=== PATIENT | male | born 1960 | race African-American/Black ===

== ENCOUNTER 2018-12-28 11:00 | Inpatient (IN) | payer OTHER ==
[~2018-12-28] VITALS: Ht 177.8 cm; Wt 111.6 kg
[~2018-12-28 11:00] MED LIST: BACTRIM DS TAB1 EACH; KEFLEX500 MG PO; LORTAB 7.5/5001 TA1 PO
[2018-12-28 11:05] VITALS: BP 169/102
[2018-12-28] MEDS ORDERED: FLEXERIL PO (11:09)
[2018-12-28] MEDS ORDERED: KEPPRA250 MG PO (11:09)
[2018-12-28 11:59] LABS: ABSOLUTE BASOPHILS 0.1 thou/uL (0.0-0.2); ABSOLUTE EOSINOPHILS 0.1 thou/uL (0.0-0.7); ABSOLUTE LYMPHOCYTES 1.2 thou/uL (0.8-5.3); ABSOLUTE MONOCYTES 0.7 thou/uL (0.0-1.2); ABSOLUTE NEUTROPHILS 5.2 thou/uL (1.6-8.1); BASOPHILS 0.9 %; EOSINOPHILS 1.1 %; HEMATOCRIT 58.7 % (42.0-52.0); HEMOGLOBIN 19.5 gm/dL (14.0-18.0); LYMPHOCYTES 17.1 %; MCH 31.4 pg (26.0-34.0); MCHC 33.3 g/dL (28.0-37.0); MCV 94.3 fL (80.0-100.0); MONOCYTES 9.4 %; MPV 9.4 fl. (7.2-11.1); NUCLEATED RBCS 0 /100WBC; PLATELET COUNT* 294 thou/uL (150-400); POLYS 71.5 %; RBC 6.22 mil/uL (4.50-6.00); WBC 7.3 thou/uL (4.0-11.0)
[2018-12-28 12:03] LABS: ANION GAP 10 mmol/L (7-16); BUN 14 mg/dL (7-18); CALCIUM 9.4 mg/dL (8.5-10.1); CHLORIDE 102 mmol/L (98-107); CO2 26 mmol/L (21-32); CREATININE 1.9 mg/dL (0.6-1.3); GLUCOSE 86 mg/dL (70-99); POTASSIUM 4.8 mmol/L (3.5-5.1); SODIUM 138 mmol/L (136-145)
[2018-12-28 12:16] LABS: ALKALINE PHOSPHATASE 37 U/L (46-116); NT-PRO BRAIN NAT PEPTIDE 65 pg/mL (<300); SGOT 138 U/L (15-37); SGPT 119 U/L (30-65); TOTAL BILIRUBIN 1.3 mg/dL (<0.1-1.0); TOTAL PROTEIN 7.4 g/dL (6.4-8.2)
[2018-12-28 12:34] LABS: TROPONIN-I LEVEL <0.06 ng/mL (<0.06)
--- NOTE | 2018-12-28 12:48 | NUR ---
JAM NOTIFIED UPON PT RETURN FROM CT. PT CONNECTED TO MONITOR
--- NOTE | 2018-12-28 15:22 | NUR ---
REPORT CALLED TO MICHELE ON
[2018-12-28 15:45] VITALS: BP 148/97
[2018-12-28 16:00] VITALS: BP 135/79
--- NOTE | 2018-12-28 17:23 | EKG ---
[place] [address] ELECTROCARDIOGRAM REPORT Name: MIHAI GAMEZ Room: [address] ADM IN ..#: [id number] Admission: 12/28/18 Attend Phys: Jay Nunes MD Discharge: Date of : 60 Report #: [id number] THIS REPORT FOR: //name// [facility] ED Test Date: 2018-12-28 Test Time: 11:14:06 Pat Name: MIHAI GAMEZ Department: Room: [facility] Gender: M [employer]ist: [place] : 1960 Requested By: Duy Villaseñor Order Number: [id number] MD: Mihai Webster Measurements Intervals [place] Rate: 101 P: 41 VA: 145 QRS: 26 QRSD: 100 T: 4 QT: 352 QTc: 457 Interpretive Statements Sinus tachycardia Anteroseptal infarct age indeterminate, possible Compared to ECG 07/06/2012 01:12:55 No significant changes noted. Electronically Signed On 12-28-2018 17:23:34 CDT by Mihai Webster [email or web address] <ELECTRONICALLY SIGNED> By: Mihai Webster MD, FACC 12/28/18 1723 1114 [id number] Mihai Webster MD, [facility] /EPI
--- NOTE | 2018-12-28 19:50 | NUR ---
ASSUSSMED CARE OF PT APPROX 1545, REPORT RECIEVED FROM ED NURSE. PT WAS VERY UNSTEADY ON HIS FEET UP WITH STAND BY ASSISSTANCE. PT WAS EXPERIENCING NAUSEA AND HAD DRY HEAVES. PTS BP IS STABLE, CARDIAC MONITORING. SEIZURE PRECAUTUIONS IN PLACE. SAFETY PRECATIONS IN PLACE. HOURLY ROUNDED FOR PT SAFETY. PTS EX AT BEDSIDE.
[2018-12-28 20:10] VITALS: BP 161/90
[2018-12-29] VITALS (8 sets, daily range): BP systolic 134–170; BP diastolic 94–113
[2018-12-29 05:13] LABS: RDW-CV 14.8 % (10.5-14.5)
[2018-12-29 05:15] LABS: ABSOLUTE LYMPHOCYTES 0.8 thou/uL (0.8-5.3); ABSOLUTE MONOCYTES 0.7 thou/uL (0.0-1.2); ABSOLUTE NEUTROPHILS 6.6 thou/uL (1.6-8.1); BASOPHILS 0.5 %; EOSINOPHILS 0.2 %; HEMATOCRIT 55.7 % (42.0-52.0); HEMOGLOBIN 18.4 gm/dL (14.0-18.0); LYMPHOCYTES 10.2 %; MCH 31.1 pg (26.0-34.0); MCV 94.2 fL (80.0-100.0); MONOCYTES 8.4 %; MPV 9.6 fl. (7.2-11.1); NUCLEATED RBCS 0 /100WBC; PLATELET COUNT* 274 thou/uL (150-400); POLYS 80.7 %; RBC 5.91 mil/uL (4.50-6.00); WBC 8.2 thou/uL (4.0-11.0)
--- NOTE | 2018-12-29 05:31 | NUR ---
PT CARE ASSUMED AT 1930. SAT MAINTAINED IN RA. ALERT AND ORIENTED X4. CALL LIGHT WITHIN REACH AND BED IN LOW POSITION. C/O PAIN, MEDICATION GIVEN PER EMAR. DENIES NAUSEA. HOURLY ROUNDING DONE FOR PT SAFETY.
[2018-12-29 05:41] LABS: CALCIUM 8.3 mg/dL (8.5-10.1); CREATININE 1.5 mg/dL (0.6-1.3); POTASSIUM 4.6 mmol/L (3.5-5.1)
--- NOTE | 2018-12-29 11:10 | NUR ---
ASSUMED PT CARE AT 0730, AOX4, UP SBA, O2 SAT 90'S RA. TRACING SINUS TACH ON TELE. PT DENIES NAUSEA AND VOMITING. ABDOMINAL PAIN RESOLVED LAST NIGHT WITH PAIN MED. PT ADVANCE DIET FROM NPO TO HEART HEALTHY. PT BP IS HIGH. MEDS GIVEN. PT ON SEIZURE PRECAUTION. WOUND ON FOREHEAD NOTED REPORT FROM [facility]ALL. AM ASSESSMENT S CHARTED, MEDS GIVEN PER MAY, CALL LIGHT WITHIN REACH, HOURLY ROUNDING WILL CONTINUE TO MONITOR.
--- NOTE | 2018-12-29 13:53 | NUR ---
Pt is A&O. Resides at home with family. Independent and active. No DME. No hx of HH or SNF. Goal is home at ma. Following.
[2018-12-29 13:58] LABS: URINE BLOOD 2+ (Negative); URINE CLARITY CLEAR; URINE COLOR YELLOW; URINE GLUCOSE-RANDOM NEGATIVE (Negative); URINE KETONES 1+ (Negative); URINE LEUKOCYTES-REFLEX NEGATIVE (Negative); URINE NITRITE-REFLEX NEGATIVE (Negative); URINE PROTEIN 3+ (Negative); URINE SPECIFIC GRAVITY >= 1.030 (1.005-1.030)
[2018-12-29 14:02] LABS: ICTOTEST (BILI CONFIRMATORY) Positive (Negative); URINE BILIRUBIN 2+ (Negative)
[2018-12-29 14:04] LABS: BACTERIA-REFLEX 1-9 Few /HPF (None Seen); COARSE GRANULAR CASTS 4-10 Moderate /LPF (None Seen); MUCUS 0-3 Light strn/LPF (None Seen); SQUAMOUS 4-10 Moderate /LPF (0-3); URINE RBC 3-10 Few /HPF (0-2); URINE WBC-REFLEX 0-5 Rare /HPF (0-5)
[2018-12-29 14:06] LABS: AMP/METHAMP Negative (Negative); BARBITURATES Negative (Negative); BENZODIAZEPINES Negative (Negative); COCAINE Negative (Negative); METHADONE Negative (Negative); OPIATES Negative (Negative); PCP Negative (Negative); THC Negative (Negative)
--- NOTE | 2018-12-29 18:10 | NUR ---
AROUND 1530 PT COMPLAINS OF ABDOMINAL PAIN RATED 7, DR NOTIFIED. PAIN MEDS GIVEN, REPORT RELIEF. PT STATE HE FEELS BLOATED, AND HAVING MULTIPLE HICCUPS THIS SHIFT. PT ALSO HAVING NAUSEA AND VOMITING, ZOFRAN IV GIVEN WITH MILD RELIEF, STILL FEELING NAUSEOUS. PT ASKED FOR MUSCLE SPASM. ORDERED RECEIVED FROM WILL CONTINUE TO MONITOR.
[2018-12-30] VITALS: BP 149/96
[2018-12-30 04:00] VITALS: BP 145/88
[2018-12-30 04:55] LABS: ABSOLUTE LYMPHOCYTES 1.2 thou/uL (0.8-5.3); ABSOLUTE MONOCYTES 0.9 thou/uL (0.0-1.2); BASOPHILS 0.4 %; EOSINOPHILS 0.5 %; HEMATOCRIT 52.4 % (42.0-52.0); HEMOGLOBIN 17.6 gm/dL (14.0-18.0); LYMPHOCYTES 14.6 %; MCH 31.6 pg (26.0-34.0); MCHC 33.6 g/dL (28.0-37.0); MCV 94.1 fL (80.0-100.0); MONOCYTES 10.7 %; MPV 9.4 fl. (7.2-11.1); NUCLEATED RBCS 0 /100WBC; PLATELET COUNT* 260 thou/uL (150-400); POLYS 73.8 %; RBC 5.57 mil/uL (4.50-6.00); RDW-CV 15.1 % (10.5-14.5); WBC 8.2 thou/uL (4.0-11.0)
[2018-12-30 05:28] LABS: CALCIUM 8.1 mg/dL (8.5-10.1); CREATININE 1.4 mg/dL (0.6-1.3); POTASSIUM 4.8 mmol/L (3.5-5.1)
--- NOTE | 2018-12-30 05:32 | NUR ---
PT CARE ASSUMED AT 1930. SAT MAINTAINED IN RA. ALERT AND ORIENTED X4. CALL LIGHT WITHIN REACH AND BED IN LOW POSITION. C/O PAIN AND MEDICATION GIVEN PER EMAR. HOURLY ROUNDING DONE FOR PT SAFETY. DENIES NAUSEA.
[2018-12-30 07:30] VITALS: BP 142/101
--- NOTE | 2018-12-30 09:41 | NUR ---
ASSUMED PT CARE AT 0730, AOX4, UP SBA, O2 SAT 90'S RA. TRACING SR ON TELE. PT DENIES PAIN, NO NAUSEA&VOMITING THIS AM. PT WANTS TO GO HOME. BP STILL HIGH. MEDS GIVEN. AM ASSESSMENT CHARTED, HOURLY ROUNDING, WILL CONTINUE TO MONITOR.
[2018-12-30] MEDS ORDERED: CLONIDINE0.1 PO (09:52)
[2018-12-30] MEDS ORDERED: NORVASC10 MG PO (09:52)
[2018-12-30 09:54] VITALS: BP 142/101
[2018-12-30 12:00] VITALS: BP 139/92
--- NOTE | 2018-12-30 12:49 | NUR ---
DISCHARGE PLAN DISCUSSED WITH THE PT, MEDICATION PACKET/SCRIPT GIVEN. IV, TELE REMOVED. REMINDED TO FOLLOW UP WITH PCP, NEUROLOGY. PT ADVISED CLEARANCE WITH [facility] TO DRIVE. COMMUNICATE UNDERSTANDING. LEFT THE UNIT AT 1330 AMBULATORY.
--- NOTE | 2018-12-30 13:26 | NUR ---
DISCHARGED PLAN DISCUSS WITH PATIENT. MEDICATION SCRIPT/PACKET GIVEN. REMINDED TO FOLLOW UP PCP, NEUROLOGY, [facility], COMMUNICATE UNDERSTANDING. IV, TELE REMOVED. LEFT THE UNIT AT 1230 AMBULATORY.
== END 2018-12-30 12:30 | disposition home or self-care (01) | DRG 683 ==
LOC: M.ERS 11:00 → M.2W 13:22 → M.TBA-ER 13:22 → M.2W 15:45
PROVIDERS: Emergency Medicine Emergency Medical Services; ADMIT Internal Medicine
DX: N17.9 Acute kidney failure, unspecified (principal); I16.1 Hypertensive emergency; M62.82 Rhabdomyolysis; D75.1 Secondary polycythemia; E86.0 Dehydration; S01.91XA Laceration without foreign body of unspecified part of head, initial encounter; G40.909 Epilepsy, unspecified, not intractable, without status epilepticus; I10 Essential (primary) hypertension; X58.XXXA Exposure to other specified factors, initial encounter; Y93.89 Activity, other specified; Y92.89 Other specified places as the place of occurrence of the external cause; Y99.8 Other external cause status; Z23 Encounter for immunization; Z79.899 Other long term (current) drug therapy